=== PATIENT | male | born 2000 | race Caucasian/White ===

== ENCOUNTER 2021-11-01 11:20 | Emergency (ER) | payer OTHER ==
[2021-11-01 11:31] VITALS: BP 121/64
[2021-11-01] MEDS ORDERED: ONDANSETRON ODT 4 MG TABLET TL STA (12:10)
[2021-11-01 12:23] LABS: BASOPHILS % (AUTO) 0.4 %; HGB - HEMOGLOBIN 14.8 g/dL (14.0-18.0); LYMPHOCYTES # (AUTO) 0.7 10^3/uL (1.5-3.5); MEAN CORPUSCULAR HGB CONC 35.2 g/dL (32.0-36.0); MEAN CORPUSCULAR VOLUME 88.1 fL (80.0-94.0); MEAN PLATELET VOLUME 9.7 fL (7.4-11.4); MONOCYTES # (AUTO) 1.3 10^3/uL (0.0-1.0); MONOCYTES % (AUTO) 11.8 %; NEUTROPHILS # (AUTO) 9.2 10^3/uL (1.5-6.6); NEUTROPHILS % (AUTO) 81.4 %; PLT - PLATELET COUNT 217 10^3/uL (130-450); RED BLOOD COUNT 4.77 10^6/uL (4.70-6.10); RED CELL DISTRIBUTION WIDTH 13.1 % (12.0-15.0); WHITE BLOOD COUNT 11.3 x10^3/uL (4.8-10.8)
[2021-11-01 12:38] LABS: ALBUMIN 4.8 g/dL (3.2-5.5); ALBUMIN/GLOBULIN RATIO 1.7 (1.0-2.2); BILIRUBIN,TOTAL 1.1 mg/dL (0.2-1.0); CALCIUM 9.7 mg/dL (8.5-10.3); POTASSIUM 3.6 mmol/L (3.5-5.0); TOTAL PROTEIN 7.7 g/dL (6.7-8.2)
[2021-11-01 12:40] LABS: BILIRUBIN,URINE NEGATIVE (NEGATIVE); GLUCOSE, URINE (UA) NEGATIVE (NEGATIVE); KETONES,URINE (UA) TRACE mg/dL (NEGATIVE); LEUKOCYTE ESTERASE, URINE NEGATIVE (NEGATIVE); NITRITE,URINE NEGATIVE (NEGATIVE); OCCULT BLOOD,URINE NEGATIVE (NEGATIVE); PROTEIN,URINE TRACE mg/dL (NEGATIVE); UROBILINOGEN,URINE 0.2 (NORMAL) E.U./dL (NORMAL)
--- NOTE | 2021-11-01 12:46 | ED Physician Documentation ---
PD HPI NVD - Stated complaint Stated Complaint: VOMITING,HEAD/BODY PX - Chief complaint Chief Complaint: Abd Pain - History obtained from History obtained from: Patient - History of Present Illness Timing - onset: Last night - Additonal information Additional information: 21-year-old male with no reported past medical history presents with nausea and vomiting that began approximately 3 AM. Reports several other friends are sick with similar symptoms since last night. States that initially he was unable to tolerate even water, however since it 9:00 this morning he has been able to take small sips of fluids without vomiting. Denies abdominal pain. Denies new or strange foods. Also endorsing mild nasal congestion and body aches. Denies fevers. Review of Systems Ten Systems: 10 systems reviewed and negative Constitutional: reports: Myalgias. denies: Fever, Chills, Weight Loss, Sweats Nose: reports: Rhinorrhea / runny nose, Congestion. denies: Foreign Body Throat: denies: Dental pain / toothache, Oral lesions / sores Cardiac: denies: Chest pain / pressure, Palpitations Respiratory: denies: Dyspnea, Cough GI: reports: Nausea, Vomiting. denies: Abdominal Pain, Constipation, Diarrhea PD PAST MEDICAL HISTORY - Past Medical History Past Medical History: No - Present Medications Home Medications: Ambulatory Orders Medication Instructions Recorded Confirmed Ondansetron Odt [Zofran] 4 mg TL Q6H PRN #30 tablet 11/01/21 - Allergies Allergies/Adverse Reactions: Allergies Allergy/AdvReac Type Severity Reaction Status Date / Time No Known Drug Allergies Allergy Verified 11/01/21 11:31 PD ED PE NORMAL - Vitals Vital signs reviewed: Yes - General General: Alert and oriented X 3, No acute distress, Well developed/nourished - Neck Neck: Supple, no meningeal sign, No bony TTP, No adenopathy, Thyroid normal, No JVD, No bruit, C-Spine cleared by NEXUS criteria, Other - Cardiac Cardiac: RRR, No murmur, No gallop, No rub, Strong equal pulses, Other - Respiratory Respiratory: No respiratory distress, Clear bilaterally, Other - Abdomen Abdomen: Soft, Non tender, Non distended, No organomegaly, Other - Extremities Extremities: No deformity, No tenderness to palpate, Normal ROM s pain, No edema, No calf tenderness / cord, Other - Neuro Neuro: Alert and oriented X 3, rehabilitation case coordinator 2-12 intact, No motor deficit, No sensory deficit, Normal speech, Other Results - Vitals Vitals: Vital Signs - 24 hr 11/01/21 11:25 Temperature 37.2 C Heart Rate 86 Respiratory 16 Rate Blood Pressure 121/64 O2 Saturation 97 Oxygen O2 Source Room air - Labs Labs: Laboratory Tests 11/01/21 11/01/21 11/01/21 12:16 12:16 12:26 WBC 11.3 H RBC 4.77 Hgb 14.8 Hct 42.0 MCV 88.1 MCH 31.0 MCHC 35.2 RDW 13.1 Plt Count 217 MPV 9.7 Neut # (Auto) 9.2 H Lymph # (Auto) 0.7 L [place] # (Auto) 1.3 H Eos # (Auto) 0.0 Baso # (Auto) 0.0 Absolute Nucleated RBC 0.00 Nucleated RBC % 0.0 Sodium 135 Potassium 3.6 Chloride 96 L Carbon Dioxide 29 Anion Gap 10.0 BUN 15 Creatinine 1.0 Estimated GFR (MDRD) 95 Glucose 104 H Calcium 9.7 Total Bilirubin 1.1 H AST 22 ALT 23 Alkaline Phosphatase 81 Total Protein 7.7 Albumin 4.8 Globulin 2.9 Albumin/Globulin Ratio 1.7 Lipase 31 Urine Color DARK YELLOW Urine Clarity CLEAR Urine pH 6.0 Ur Specific [place] 1.020 Urine Protein TRACE Urine Glucose (UA) NEGATIVE Urine Ketones TRACE Urine Occult Blood NEGATIVE Urine Nitrite NEGATIVE Urine Bilirubin NEGATIVE Urine Urobilinogen 0.2 (NORMAL) Ur Leukocyte Esterase NEGATIVE Ur Microscopic Review NOT INDICATED Urine Culture Comments NOT INDICATED PD MEDICAL DECISION MAKING - ED course Complexity details: reviewed old records ED course: Well-appearing male with less than 12 hours of symptoms. Abdomen soft, nontender. Labs unremarkable. Tolerating p.o. even before arrival to the emergency department, given a prescription for Zofran counseled fluid hydration and a brat diet while he is still feeling nauseous. Patient declined COVID-19 testing, he was counseled that because of his nasal congestion and body aches he was at risk for testing positive especially since numerous other [employer] personnel have recently tested positive for COVID-19. Patient was counseled to quarantine at home per current [employer] requirements. Note for work provided. Departure - Departure Disposition: 01 Home, Self Care Clinical Impression: Vomiting Qualifiers: Vomiting type: unspecified Nausea presence: with nausea Qualified Code(s): R11.2 - Nausea with vomiting, unspecified Condition: Good Instructions: ED Diet Vomiting Diarrhea Prescriptions: Ondansetron Odt [Zofran] 4 mg TL Q6H PRN #30 tablet PRN Reason: Nausea / Vomiting Discharge Date/Time: 11/01/21 12:57
[2021-11-01 12:52] LABS: CLARITY,URINE CLEAR (CLEAR)
== END 2021-11-01 12:57 | disposition home or self-care (01) ==
LOC: ED 11:20
DX: R11.2 Nausea with vomiting, unspecified (principal)
CPT/HCPCS: 36415; 80053; 81003; 83690; 85025; 99282; 99283; Q0162; 81001; 87086

== ENCOUNTER 2022-09-18 13:46 | Emergency (ER) | payer OTHER ==
[2022-09-18 13:56] VITALS: BP 140/90
[2022-09-18 15:20] LABS: BASOPHILS # (AUTO) 0.1 10^3/uL (0.0-0.1); BASOPHILS % (AUTO) 0.7 %; EOSINOPHILS % (AUTO) 0.3 %; HCT - HEMATOCRIT 42.2 % (42.0-52.0); HGB - HEMOGLOBIN 14.8 g/dL (14.0-18.0); LYMPHOCYTES # (AUTO) 1.6 10^3/uL (1.5-3.5); MEAN CORPUSCULAR HEMOGLOBIN 30.3 pg (27.0-31.0); MEAN CORPUSCULAR HGB CONC 35.1 g/dL (32.0-36.0); MEAN CORPUSCULAR VOLUME 86.3 fL (80.0-94.0); MEAN PLATELET VOLUME 9.4 fL (7.4-11.4); MONOCYTES # (AUTO) 0.5 10^3/uL (0.0-1.0); MONOCYTES % (AUTO) 6.4 %; NEUTROPHILS # (AUTO) 5.2 10^3/uL (1.5-6.6); NEUTROPHILS % (AUTO) 70.3 %; PLT - PLATELET COUNT 288 10^3/uL (130-450); RED BLOOD COUNT 4.89 10^6/uL (4.70-6.10); RED CELL DISTRIBUTION WIDTH 12.5 % (12.0-15.0); WHITE BLOOD COUNT 7.4 x10^3/uL (4.8-10.8)
[2022-09-18 15:33] LABS: ALBUMIN 4.8 g/dL (3.2-5.5); ALBUMIN/GLOBULIN RATIO 1.7 (1.0-2.2); BILIRUBIN,TOTAL 1.5 mg/dL (0.2-1.0); CALCIUM 9.3 mg/dL (8.5-10.3); POTASSIUM 3.4 mmol/L (3.5-5.0); TOTAL PROTEIN 7.7 g/dL (6.7-8.2)
[2022-09-18 15:35] LABS: BILIRUBIN,URINE NEGATIVE (NEGATIVE); GLUCOSE, URINE (UA) NEGATIVE (NEGATIVE); KETONES,URINE (UA) NEGATIVE (NEGATIVE); LEUKOCYTE ESTERASE, URINE NEGATIVE (NEGATIVE); NITRITE,URINE NEGATIVE (NEGATIVE); OCCULT BLOOD,URINE NEGATIVE (NEGATIVE); PROTEIN,URINE TRACE mg/dL (NEGATIVE); UROBILINOGEN,URINE 0.2 (NORMAL) E.U./dL (NORMAL)
[2022-09-18 15:41] LABS: CLARITY,URINE CLEAR (CLEAR)
--- NOTE | 2022-09-18 15:41 | ED Physician Documentation ---
PD HPI ABD PAIN - Stated complaint Stated Complaint: MALE - Chief complaint Chief Complaint: Abd Pain - History obtained from History obtained from: Patient - History of Present Illness Pain level max: 6 Pain level now: 2 Quality: Aching, Pain Associated symptoms: Nausea. No: Fever, Vomiting, Hematemesis, Diarrhea, Constipation, Melena, Hematochezia, Dysuria - Additional information Additional information: Patient is a 22-year-old male who presents to the emergency department with left pelvic pain. He states he been told he has an inguinal hernia or a lipoma. He states that he was told by the [employer] that if he had increased pain to come to the emergency department. Pain was a 6 out of 10 earlier, now a 2 out of 10. Worse with movement, better with rest. Has had nausea intermittently for a few days, no vomiting, no diarrhea or constipation. No fevers. No urina ry symptoms. Has an appointment with surgery in 3 weeks. Review of Systems Constitutional: denies: Fever, Chills GI: denies: Vomiting, Hematemesis, Bloody / black stool Skin: denies: Rash Musculoskeletal: denies: Neck pain, Back pain Neurologic: denies: Headache PD PAST MEDICAL HISTORY - Past Medical History Past Medical History: Yes Other Past Medical History: hernia - Past Surgical History Past Surgical History: No - Present Medications Home Medications: Ambulatory Orders Medication Instructions Recorded Confirmed Ondansetron Odt [Zofran] 4 mg TL Q6H PRN #30 tablet 11/01/21 - Allergies Allergies/Adverse Reactions: Allergies Allergy/AdvReac Type Severity Reaction Status Date / Time No Known Drug Allergies Allergy Verified 09/18/22 13:51 - Social History Does the pt smoke?: No Smoking Status: Never smoker Does the pt drink ETOH?: Yes Does the pt have substance abuse?: No - Immunizations Immunizations are current?: Yes - POLST Patient has POLST: No PD ED PE NORMAL - Vitals Vital signs reviewed: Yes - General General: Alert and oriented X 3, No acute distress - HEENT HEENT: Moist mucous membranes - Neck Neck: Supple, no meningeal sign - Cardiac Cardiac: RRR - Respiratory Respiratory: No respiratory distress, Clear bilaterally - Abdomen Abdomen: Soft, Non tender, Non distended - Male Male : Other (Large left inguinal hernia) - Derm Derm: Warm and dry - Extremities Extremities: No edema - Neuro Neuro: Alert and oriented X 3 - Psych Psych: Normal mood, Normal affect Results - Vitals Vitals: Vital Signs - 24 hr 09/18/22 13:51 Temperature 36.5 C Heart Rate 72 Respiratory 16 Rate Blood Pressure 140/90 H O2 Saturation 98 Oxygen O2 Source Room air - Labs Labs: Laboratory Tests 09/18/22 09/18/22 09/18/22 15:15 15:15 15:15 WBC 7.4 RBC 4.89 Hgb 14.8 Hct 42.2 MCV 86.3 MCH 30.3 MCHC 35.1 RDW 12.5 Plt Count 288 MPV 9.4 Neut # (Auto) 5.2 Lymph # (Auto) 1.6 [place] # (Auto) 0.5 Eos # (Auto) 0.0 Baso # (Auto) 0.1 Absolute Nucleated RBC 0.00 Nucleated RBC % 0.0 Sodium 136 Potassium 3.4 L Chloride 101 Carbon Dioxide 28 Anion Gap 7.0 BUN 14 Creatinine 1.0 Estimated GFR (MDRD) 94 Glucose 112 H Calcium 9.3 Total Bilirubin 1.5 H AST 24 ALT 28 Alkaline Phosphatase 72 Total Protein 7.7 Albumin 4.8 Globulin 2.9 Albumin/Globulin Ratio 1.7 Lipase 28 Urine Color DARK YELLOW Urine Clarity CLEAR Urine pH 7.0 Ur Specific [place] 1.020 Urine Protein TRACE Urine Glucose (UA) NEGATIVE Urine Ketones NEGATIVE Urine Occult Blood NEGATIVE Urine Nitrite NEGATIVE Urine Bilirubin NEGATIVE Urine Urobilinogen 0.2 (NORMAL) Ur Leukocyte Esterase NEGATIVE Ur Microscopic Review NOT INDICATED Urine Culture Comments NOT INDICATED - Rads (name of study) CT abd/pelvis Relevant Findings:: Final report received, See rad report PD Medical Decision Making - ED course Complexity details: reviewed results, re-evaluated patient, considered differential, d/w patient ED course: Patient is well-appearing, nontoxic. Afebrile. CT scan does not show any bowel in the inguinal hernia. Does have a large amount of fat. Tolerating p.o. without difficulty here. He does not currently have any symptoms consistent with an infectious colitis. He states he has had intermittent diarrhea for years. Does not believe there is a family history of inflammatory bowel disease, but [place] No fevers. No recent travel. No recent antibiotics. Patient counseled regarding signs and symptoms for which I believe and urgent re-evaluation would be necessary. Patient with good understanding of and agreement to plan and is comfortable going home at this time This document was made in part using voice recognition software. While efforts are made to proofread this document, sound alike and grammatical errors may occur. PROCEDURE: ABDOMEN/PELVIS W INDICATIONS: LLQ abd/pelvic pain, L inguinal hernia CONTRAST: 100mL Omni 350 TECHNIQUE: After the administration of IV contrast, 5 mm thick sections acquired from the diaphragms to the symphysis. 5 mm thick coronal and sagittal reformats were acquired. For radiation dose reduction, the following was used: automated exposure control, adjustment of mA and/or kV according to patient size. COMPARISON: FINDINGS: Image quality: Excellent. Lung bases and heart: Unremarkable. Liver: No solid mass. Gallbladder and biliary tree: Gallbladder is within normal limits. No biliary ductal dilatation. Spleen: No splenomegaly. Pancreas: No pancreatic ductal dilation. Adrenals: No adrenal nodule. Kidneys and ureters: No hydronephrosis. No renal cystic lesion which requires follow up. No solid mass. Bowel and peritoneum: There is no bowel obstruction. Mild diffuse colonic wall thickening and mild pericolonic fat stranding is seen. No abscess collection. No free fluid of free air. Lymph nodes: No central or retroperitoneal adenopathy. Vessels: No infrarenal aortic aneurysm. PELVIS Reproductive organs: Unremarkable. Bladder: No abnormal wall thickening, accounting for underdistension. Pelvic lymph nodes: No pelvic adenopathy by size criteria. Bones: No aggressive osseous abnormality. Other: Left inguinal hernia is seen containing fat only. No significant ventral hernia. IMPRESSION: 1. Finding is concerning for infectious or inflammatory colitis. No abscess collection. No bowel obstruction. No free fluid of free air. 2. Left inguinal hernia containing fat only. Departure - Departure Disposition: 01 Home, Self Care Clinical Impression: Colitis Inguinal hernia Qualifiers: Obstruction and gangrene presence: without obstruction or gangrene Laterality: unilateral Recurrence: non-recurrent Qualified Code(s): K40.90 - Unilateral ingu inal hernia, without obstruction or gangrene, not specified as recurrent Condition: Good Instructions: ED Hernia Inguinal Follow-Up: your,doctor in 1 week [Other] Comments: Please follow-up with your doctor for further care. You do have a left inguinal hernia, but there is only fat in the hernia. You can follow-up with the surgeon as scheduled for this. Your CT reading is below. There is a question of possible infectious versus inflammatory colitis, your history is possibly consistent with inflammatory bowel disease, it is recommended that [place] and likely will require a colonoscopy. Please return if you worsen. PROCEDURE: ABDOMEN/PELVIS W INDICATIONS: LLQ abd/pelvic pain, L inguinal hernia CONTRAST: 100mL Omni 350 TECHNIQUE: After the administration of IV contrast, 5 mm thick sections acquired from the diaphragms to the symphysis. 5 mm thick coronal and sagittal reformats were acquired. For radiation dose reduction, the following was used: automated exposure control, adjustment of mA and/or kV according to patient size. COMPARISON: FINDINGS: Image quality: Excellent. Lung bases and heart: Unremarkable. Liver: No solid mass. Gallbladder and biliary tree: Gallbladder is within normal limits. No biliary ductal dilatation. Spleen: No splenomegaly. Pancreas: No pancreatic ductal dilation. Adrenals: No adrenal nodule. Kidneys and ureters: No hydronephrosis. No renal cystic lesion which requires fo llow up. No solid mass. Bowel and peritoneum: There is no bowel obstruction. Mild diffuse colonic wall thickening and mild pericolonic fat stranding is seen. No abscess collection. No free fluid of free air. Lymph nodes: No central or retroperitoneal adenopathy. Vessels: No infrarenal aortic aneurysm. PELVIS Reproductive organs: Unremarkable. Bladder: No abnormal wall thickening, accounting for underdistension. Pelvic lymph nodes: No pelvic adenopathy by size criteria. Bones: No aggressive osseous abnormality. Other: Left inguinal hernia is seen containing fat only. No significant ventral hernia. IMPRESSION: 1. Finding is concerning for infectious or inflammatory colitis. No abscess collection. No bowel obstruction. No free fluid of free air. 2. Left inguinal hernia containing fat only. Discharge Date/Time: 09/18/22 17:42
--- NOTE | 2022-09-18 17:06 | CT Report ---
PROCEDURE: ABDOMEN/PELVIS W INDICATIONS: LLQ abd/pelvic pain, L inguinal hernia CONTRAST: 100mL Omni 350 TECHNIQUE: After the administration of IV contrast, 5 mm thick sections acquired from the diaphragms to the symp hysis. 5 mm thick coronal and sagittal reformats were acquired. For radiation dose reduction, the f ollowing was used: automated exposure control, adjustment of mA and/or kV according to patient size. COMPARISON: FINDINGS: Image quality: Excellent. Lung bases and heart: Unremarkable. Liver: No solid mass. Gallbladder and biliary tree: Gallbladder is within normal limits. No biliary ductal dilatation. Spleen: No splenomegaly. Pancreas: No pancreatic ductal dilation. Adrenals: No adrenal nodule. Kidneys and ureters: No hydronephrosis. No renal cystic lesion which requires follow up. No solid mas s. Bowel and peritoneum: There is no bowel obstruction. Mild diffuse colonic wall thickening and mild pe ricolonic fat stranding is seen. No abscess collection. No free fluid of free air. Lymph nodes: No central or retroperitoneal adenopathy. Vessels: No infrarenal aortic aneurysm. PELVIS Reproductive organs: Unremarkable. Bladder: No abnormal wall thickening, accounting for underdistension. Pelvic lymph nodes: No pelvic adenopathy by size criteria. Bones: No aggressive osseous abnormality. Other: Left inguinal hernia is seen containing fat only. No significant ventral hernia. IMPRESSION: 1. Finding is concerning for infectious or inflammatory colitis. No abscess collection. No bowel obst ruction. No free fluid of free air. 2. Left inguinal hernia containing fat only. Reviewed by: Chiki Johnson MD on 09/18/2022 5:05 PM PDT Approved by: Chiki Johnson MD on 09/18/2022 5:05 PM PDT Station ID: [id number]
== END 2022-09-18 17:42 | disposition home or self-care (01) ==
LOC: ED 13:46
DX: K40.90 Unilateral inguinal hernia, without obstruction or gangrene, not specified as recurrent (principal); K52.9 Noninfective gastroenteritis and colitis, unspecified
CPT/HCPCS: 36415; 74177; 80053; 81003; 83690; 85025; 99283; 99284; Q9967; 81001; 87086

== ENCOUNTER 2022-11-09 08:47 | Day surgery (SDC) | payer OTHER ==
[~2022-11-09 08:47] MED LIST: BUPIVACAINE 0.25% PF 30 ML VIAL ONE; LIDOCAINE-MPF 1% 30 ML VIAL ONE
[2022-11-09] MEDS ORDERED: ceFAZolin 2 GM VIAL ONE (09:26)
[2022-11-09] MEDS: LACTATED RINGERS 1,000 ML IV ONE ×2 (10:02→12:17)
[2022-11-09] MEDS: BUPIVACAINE 0.25% PF 30 ML VIAL SUBQ ONE ×2 (10:16)
[2022-11-09] MEDS: LIDOCAINE-MPF 1% 30 ML VIAL SUBQ ONE (10:16)
--- NOTE | 2022-11-09 10:21 | ANESTHESIA ---
Pre-Anesthesia VS, & Labs - Diagnosis left inguinal hernia - Procedure left inguinal hernia repair with mesh Vital Signs: Temp Pulse Resp BP Pulse Ox O2 Flow Rate 36.5 C 74 17 148/88 H 97 11/09/22 09:31 11/09/22 09:31 11/09/22 09:31 11/09/22 09:31 11/09/22 09:31 Height: 5 ft 9 in Weight (kg): 72.8 kg Body Mass Index: 23.7 BMI Classification: Normal - NPO >8 hours Home Medications and Allergies Allergies/Adverse Reactions: Allergies Allergy/AdvReac Type Severity Reaction Status Date / Time No Known Drug Allergies Allergy Verified 09/18/22 13:51 Anes History & Medical History - Anesthetic History Family history of Anesthesia Complications: Denies Family history of Malignant Hyperthermia: Denies - Medical History Cardiovascular: reports: None Pulmonary: reports: None Gastrointestinal: reports: None Urinary: reports: None Neuro: reports: None Musculoskeletal: reports: None Endocrine/Autoimmune: reports: None Blood Disorders: reports: None Skin: reports: None Smoking Status: Never smoker Psychosocial: reports: No issues indicated History of Cancer?: No Exam General: Alert, Oriented x3, Cooperative, No acute distress Dental: WNL Mouth Openin Fingerbreadth Neck Mobility: Normal Mallampati classification: II Thyromental Distance: 4-6 cm Mental/Cognitive Status: Alert/Oriented X3, Normal for patient Plan Anesthesia Type: General Regional Block: Per Surgeon's request for Post Op pain control Consent for Procedure(s) Verified and Reviewed: Yes Code Status: Attempt Resuscitation ASA classification: 1-Healthy patient Is this case an emergency?: No
[2022-11-09] MEDS ORDERED: NALOXONE 0.4 MG/ML VIAL IVP PRN (10:26)
[2022-11-09] MEDS ORDERED: ATROPINE ABBOJECT 1 MG/10 ML SYRINGE IVP PRN (10:26)
[2022-11-09] MEDS ORDERED: ONDANSETRON 4 MG/2 ML VIAL IVP PRN (10:26)
[2022-11-09] MEDS ORDERED: fentaNYL 100 MCG/2 ML VIAL IVP PRN (10:26)
[2022-11-09] MEDS ORDERED: MORPHINE 2 MG/ML CARPUJECT IVP PRN (10:26)
[2022-11-09] MEDS ORDERED: HYDROmorphone 0.5 MG/0.5 ML SYRINGE IVP PRN (10:26)
[2022-11-09] MEDS ORDERED: BUPIVACAINE 0.25% PF 30 ML VIAL ONE (10:33)
[2022-11-09] MEDS ORDERED: fentaNYL 100 MCG/2 ML VIAL ONE (10:39)
[2022-11-09] MEDS ORDERED: PROPOFOL 500 MG/50 ML 500 MG/50 ML VIAL ONE (10:39)
[2022-11-09] MEDS ORDERED: LACTATED RINGERS 1,000 ML IV SCH (11:00)
[2022-11-09] MEDS ORDERED: ONDANSETRON 4 MG/2 ML VIAL ONE (11:10)
[2022-11-09] MEDS ORDERED: DEXAMETHASONE 4 MG/ML VIAL ONE (11:10)
--- NOTE | 2022-11-09 12:33 | OPERATIVE REPORT ---
Operative Report - General Procedure Date: 11/09/22 Planned Procedure: open left inguinal hernia repair with mesh Pre-Op Diagnosis: indirect left inguinal hernia Procedure Performed: open repair indirect left inguinal hernia with mesh Post Op Diagnosis: same - Procedure Note Primary Surgeon: helen mcdaniels Anesthesia Technique: General LMA, Local Pathology: sac removed. not sent Estimated Blood Loss (mL): 2 Drain/Tube Type: Other (none) Indications: large painful hernia bulge Findings: as above large indirect 8 cm and ilioinguinal nerve more lateral than typical - Other Other Information/Narrative: Patient was properly identified brought to the operating room and placed in supine position. Sequential compression devices were placed. Laryngeal mask anesthesia was used. He was prepped and draped in a sterile fashion and given preoperative antibiotics. Local anesthetic was given throughout the procedure. A 5 cm incision was made in the direction of Analy's lines just cephalad of the pubic tubercle. Dissection proceeded with cutting current cautery. The superficial epigastric vein was identified clamped divided and tied with 3-0 Vicryl. Dissection proceeded down to the aponeurosis. The aponeurosis was opened in the direction of its fibers and extended to the external ring. Cord structures were mobilized and brought up. The nerves were carefully protected and preserved. Cord structures were mobilized and brought up. An indirect inguinal hernia was present. The hernia sac was mobilized off the cord structures and suture ligated with 2 O silk and further reduced. Preperitoneal fat was not present. Polypropylene mesh was cut to size and with tails. The mesh was secured with multiple interrupted 0 Ethibond sutures. She was placed along the pubic tubercle, Moy's ligament area and along the shelving border of Poupart's ligament. Sutures were placed medially along the abdominal wall musculature and internal oblique. The medial tail of the mesh was secured to the shelving border of Poupart's ligament with 3 interrupted 0 ethibond sutures recreating the internal ring of appropriate size. Aponeurosis was closed with a running 2-0 Vicryl suture. The opposite was closed with interrupted 3-0 Vicryl suture. Buried interrupted subdermal 3-0 Vicryl sutures were then placed. And was closed with a running 4-0 Monocryl subcuticular suture. Dressing was applied. Patient was awakened and brought to recovery in good condition.
[2022-11-09] MEDS: HYDROcod/ACETAM 5/325 MG TABLET PO PRN (13:12)
[2022-11-09] MEDS ORDERED: HYDROcod/ACETAM 5/325 MG TABLET ONE (13:15)
--- NOTE | 2022-11-09 13:41 | ANESTHESIA POST OP EVALUATION ---
Anesthesia Post Eval - Post Anesthesia Eval Vitals: Last Vital Signs Temp 36.6 C 11/09/22 13:30 Pulse 77 11/09/22 13:30 Resp 16 11/09/22 13:30 BP 122/82 H 11/09/22 13:30 Pulse Ox 97 11/09/22 13:30 O2 Flow Rate CV Function Including HR & BP: Stable Pain Control: Satisfactory Nausea & Vomiting: Negative Mental Status: Baseline Respiratory Status: Airway Patent Hydration Status: Satisfactory Anesthesia Complications: None
[2022-11-09 14:16] VITALS: BP 122/80
== END 2022-11-09 08:48 | disposition home or self-care (01) ==
LOC: SDS 08:47
PROVIDERS: ATTEND Surgery
DX: K40.90 Unilateral inguinal hernia, without obstruction or gangrene, not specified as recurrent (principal)